=== PATIENT | female | born 1980 | race Caucasian/White ===

== ENCOUNTER 2024-09-12 10:17 | Outpatient (AMB) | payer OTHER, SELFPAY ==
--- NOTE | 2024-09-12 10:22 | MHC.OFFVIS ---
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 Every month she may take meloxicam for a couple of days until morning stiffness subsides then resumes every other day dose. Denies new uveitis, bowel symptoms, joint swelling, joint pain, dactylitis. She is currently being treated for a stye with doxycycline. PFSH Family History (Updated 09/11/24 @ 16:34 by Rhonda Durant CMA) Mother Rheumatoid arthritis Social History (Updated 09/11/24 @ 16:33 by Rhonda Durant CMA) Alcohol intake: current Alcohol intake frequency: holidays/special occasions only Review of Systems Const All systems reviewed & are unremarkable except as noted in HPI and below Physical Exam Vital Signs: Last Vital Signs BP 110/80 09/12/24 10:24 BMI result Body Mass Index 24.4 Const Other: General: Comfortable CVS: RRR Respiratory: clear to auscultation bilaterally. Good respiratory effort Skin: No lesions seen MSK: No tenderness of any joints. Good range of motion upper extremity and lower extremities. Negative BENITO. No spinous process tenderness. Good range of motion of cervical spine and lumbar flexion. Assessment & Plan Assessment & Plan (1) Ankylosing spondylitis: Comment: Diagnosed in . Presenting with inflammatory back pain with bilateral sacroiliitis. HLA B27 positive with normal inflammatory markers. She has been controlled on meloxicam since 06/09/2021. Ankylosing spondylitis is controlled on meloxicam every other day and daily when she has mild flare of back stiffness. 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
[2024-09-12 10:24] VITALS: BP 110/80; BMI 24.4
== END 2024-09-12 10:43 | disposition home or self-care (01) ==
PROVIDERS: PCP Internal Medicine Rheumatology; Visit Provider Internal Medicine Rheumatology
DX: M45.8 Ankylosing spondylitis sacral and sacrococcygeal region (principal); Z79.1 Long term (current) use of non-steroidal anti-inflammatories (NSAID)
CPT/HCPCS: 99214

== ENCOUNTER 2025-02-13 14:27 | Outpatient (AMB) | payer OTHER, SELFPAY ==
--- NOTE | 2025-02-13 14:29 | MHC.OFFVIS ---
Vital Signs 02/13/25 14:31 Height 6 ft Weight 152 lb 8.958 oz BMI 20.7 BP 130/80 Blood Pressure Location Lt brachial Position Sitting Pulse 72 Pulse Source Pulse Oximeter Pulse Oximetry (%) 100 Oxygen Delivery Method Room Air Intake Visit Reasons: follow up Intake Note: Pt presents today for Arthritis. Allergies sulfamethoxazole [From Bactrim] Allergy (Mild, Verified 02/13/25 14:31) Rash trimethoprim [From Bactrim] Allergy (Mild, Verified 02/13/25 14:31) Rash HPI HPI follow up: Details: Pain in back started to increase early January. She had increased pain a week before a half marathon run. After running half marathon she was unable to get out of bed 2 days after. 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 She needed assistance to get up out of bed. Morning stiffness was all day. ER doctor prescribed prednisone 40mg qd x4 days 2 weeks ago. She was able to stand up straight but had difficulty walking with prednisone. Finished prednisone last two Sundays ago. She then took meloxicam daily for a few days. She is now back to meloxicam every other day for 4 days. Today she was able to get out of bed without a lot of effort. No dactylics or synovitis or uveitis or IBD symptoms. PFSH Family History Mother Rheumatoid arthritis Social History Alcohol intake: current Alcohol intake frequency: holidays/special occasions only Physical Exam Vital Signs: Last Vital Signs Pulse 72 02/13/25 14:31 BP 130/80 02/13/25 14:31 Pulse Ox 100 02/13/25 14:31 Oxygen Delivery Method Room Air 02/13/25 14:31 BMI result Body Mass Index 20.7 Const Other: General: Comfortable CVS: RRR Respiratory: clear to auscultation bilaterally. Good respiratory effort Skin: No lesions seen MSK: No tenderness of any peripheral joints. No synovitis. Normal range of motion upper extremity and lower extremities. Tender to palpate bilateral SI joints. She localizes pain to lower lumbar region radiating laterally to both sides. Positive BENITO. No spinous process or paraspinal muscle tenderness. Normal range of motion of cervical spine and lumbar flexion. Assessment & Plan Assessment & Plan (1) Ankylosing spondylitis: Comment: Uncontrolled inflammatory back pain. She had benefit with 5 day course of prednisone 40 mg daily then meloxicam 15 mg daily. We discussed treatment of inflammatory back pain. X-rays from September 2023 reveal lower lumbar degenerative disc disease localized to L4-L5 L5-S1. SI joint x-rays from September 2023 were normal. Rheumatology history: Diagnosed in 2021. Presenting with inflammatory back pain with bilateral sacroiliitis. HLA B27 positive with normal inflammatory markers. She has been controlled on meloxicam since 06/09/2021. Ankylosing spondylitis is controlled on meloxicam every other day and daily when she has mild flare of back stiffness. Code(s): M45.9 - Ankylosing spondylitis of unspecified sites in spine Category: Medical Qualifiers: Ankylosing spondylitis location: sacral region Qualified Code(s): M45.8 - Ankylosing spondylitis sacral and sacrococcygeal region Plan: Increased frequency of meloxicam to 15 mg daily. If she does not have resolution of symptoms in 2 weeks, she will call office. 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 immunomodulators and immunosuppressants C Reactive Protein Today Z79.899 - Other vermin exterminator (current) drug therapy XR lumbar spine 2-3V Today M45.8 - Ankylosing spondylitis sacral and sacrococcygeal region Alanine Aminotransferase Today Z79.60 - intermodal dispatcher (current) use of unspecified immunomodulators and immunosuppressants Creatinine Today Z79.60 - intermodal dispatcher (current) use of unspecified immunomodulators and immunosuppressants Erythrocyte Sedimentation Rate Today Z79.899 - Other detention (current) drug therapy XR sacroiliac joint min 3V Today M45.8 - Ankylosing spondylitis sacral and sacrococcygeal region Coding Level of Care Code Est Pt Level 4 (52016) Complex EM visit Add On G2211 Diagnoses Ankylosing spondylitis of sacral region M45.8 Ankylosing spondylitis location: sacral region
[2025-02-13 14:31] VITALS: BP 130/80; PULSE 72; O2SAT 100; BMI 20.7
== END 2025-02-13 15:08 | disposition home or self-care (01) ==
LOC: HO.RHES 14:28
PROVIDERS: PCP Internal Medicine Rheumatology; Visit Provider Internal Medicine Rheumatology
DX: M45.8 Ankylosing spondylitis sacral and sacrococcygeal region (principal)
CPT/HCPCS: 99214

== ENCOUNTER 2025-02-13 14:27 | Outpatient (REF) | payer OTHER, SELFPAY ==
[2025-02-13 17:54] LABS: MANUAL DIFF FLAG NO
[2025-02-13 18:07] LABS: Basophils Percent Auto 0.5 % (0-2); Eosinophils Absolute Auto 0.1 X10*3/uL (0.0-0.4); Eosinophils Percent Auto 1.1 % (0-4); Hematocrit 40.8 % (37.0-47.0); Hemoglobin 13.8 g/dl (12.0-16.0); Imm Gran Abs Auto 0.02 X10*3/uL (0.00-0.03); Imm Gran Pct Auto 0.2 % (0.0-0.4); Lymphocytes Percent Auto 24.2 % (20-40); Mean Corpuscular HGB Conc 33.8 g/dl (31.0-35.0); Mean Corpuscular Hemoglobin 30.5 pg (27.0-33.0); Mean Corpuscular Volume 90.1 fL (80.0-98.0); Mean Platelet Volume 11.2 fL (9.4-12.3); Monocytes Absolute Auto 0.6 X10*3/uL (0.1-1.2); Monocytes Percent Auto 7.1 % (2-11); Neutrophils Absolute Auto 5.6 x10*3/uL (2.0-8.3); Neutrophils Percent Auto 66.9 % (45-73); Platelet Count 210 X10*3/uL (160-400); Red Blood Count 4.53 X10*6/uL (4.20-5.50); Red Cell Distribution Width 12.8 % (11.0-16.0); White Blood Count 8.4 X10*3/uL (4.8-10.8)
[2025-02-13 18:18] LABS: Alanine Aminotransferase 15 U/L (0-31); Aspartate Amino Transferase 24 U/L (5-31); C Reactive Protein < 0.04 mg/dL (< or = 0.50); Estimated Glomerular Filt Rate > 60
[2025-02-13 19:03] LABS: Erythrocyte Sedimentation Rate 2 MM/HR (0-20)
== END 2025-02-13 14:28 | disposition home or self-care (01) ==
LOC: HO.HKASLDS 14:27
PROVIDERS: PCP Internal Medicine Rheumatology; Visit Provider Internal Medicine Rheumatology
DX: M45.8 Ankylosing spondylitis sacral and sacrococcygeal region (principal); Z79.60 Long term (current) use of unspecified immunomodulators and immunosuppressants; Z79.899 Other long term (current) drug therapy
CPT/HCPCS: 36415; 82565; 84450; 84460; 85025; 85652; 86140

== ENCOUNTER 2025-05-01 09:25 | Outpatient (AMB) | payer OTHER, SELFPAY ==
--- NOTE | 2025-05-01 09:34 | A.OFFVIS_ITS ---
Vital Signs 05/01/25 09:39 Height 6 ft Weight 132 lb 11.492 oz BMI 18.0 BP 96/70 Blood Pressure Location Rt brachial Position Sitting Pulse 62 Pulse Source Pulse Oximeter Pulse Oximetry (%) 100 Oxygen Delivery Method Room Air Intake Visit Reasons: 3 Months Intake Note: Pt presents today for Arthritis. Accompanied by: Self / Same As Patient Allergies sulfamethoxazole (From Bactrim) Allergy (Mild, Verified 02/13/25 14:31) Rash trimethoprim (From Bactrim) Allergy (Mild, Verified 02/13/25 14:31) Rash PFSH Family History Mother Rheumatoid arthritis Social History Alcohol intake: current Alcohol intake frequency: holidays/special occasions only Physical Exam Vital Signs: Last Vital Signs Pulse 62 05/01/25 09:39 BP 96/70 05/01/25 09:39 Pulse Ox 100 05/01/25 09:39 Oxygen Delivery Method Room Air 05/01/25 09:39 BMI result Body Mass Index 18.0 Const Other: General: Comfortable CVS: RRR Respiratory: clear to auscultation bilaterally. Good respiratory effort Skin: No lesions seen MSK: No tenderness of any peripheral joints. No synovitis. Normal range of motion upper extremity and lower extremities. Tender to palpate bilateral SI joints. Negative BENITO. No spinous process or paraspinal muscle tenderness. Tender to palpate along right plantar fascia. Soft tissue swelling medial right heel. No tenderness of plantar aponeurosis. No Achilles tendon tenderness. No dactylitis. Assessment & Plan Assessment & Plan (1) Ankylosing spondylitis: Comment: Inflammatory back pain is controlled on meloxicam 15 mg daily. She developed right plantar fasciitis in March. She has had improvement with home exercise program. Rheumatology history: Diagnosed in 2021. Presenting with inflammatory back pain with bilateral sacroiliitis. HLA B27 positive with normal inflammatory markers. She has been controlled on meloxicam since 06/09/2021. Ankylosing spondylitis is controlled on meloxicam every other day and daily when she has mild flare of back stiffness. 11/2024 X-rays from September 2023 reveal lower lumbar degenerative disc disease localized to L4-L5 L5-S1. SI joint x-rays from September 2023 were normal. 01/2025 flare of back pain treated with prednisone 40mg qd 5 days then meloxicam 15mg daily. Meloxicam switched to celecoxib 04/2025 R plantar fasciitis. Code(s): M45.9 - Ankylosing spondylitis of unspecified sites in spine Category: Medical Qualifiers: Ankylosing spondylitis location: sacral region Qualified Code(s): M45.8 - Ankylosing spondylitis sacral and sacrococcygeal region Plan: Labs for drug monitoring chronic NSAID ordered Lumbar spine and SI joint x-rays ordered to assess disease activity last visit. Patient will have x-rays done next Wednesday on her day off PT ordered for plantar fasciitis with focus manual and modalities as patient is doing home exercise program. 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-steroidal anti-inflammatories (NSAID) Creatinine Today Z79.1 - halfway (current) use of non-steroidal anti- inflammatories (NSAID) PT Evaluation and Treatment Today M72.2 - Plantar fascial fibromatosis Aspartate Amino Transferase Today Z79.1 - 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
[2025-05-01 09:39] VITALS: BP 96/70; PULSE 62; O2SAT 100; BMI 18.0
== END 2025-05-01 09:58 | disposition home or self-care (01) ==
LOC: HO.RHES 09:26
PROVIDERS: PCP Internal Medicine Rheumatology; Visit Provider Internal Medicine Rheumatology
DX: M45.8 Ankylosing spondylitis sacral and sacrococcygeal region (principal); M72.2 Plantar fascial fibromatosis
CPT/HCPCS: 99214; G2211

== ENCOUNTER 2025-05-01 09:25 | Outpatient (REF) | payer OTHER, SELFPAY ==
[2025-05-01 13:47] LABS: Alanine Aminotransferase 18 U/L (0-31); Aspartate Amino Transferase 23 U/L (5-31); Estimated Glomerular Filt Rate > 60
== END 2025-05-01 09:26 | disposition home or self-care (01) ==
LOC: HO.HKASLDS 09:25
PROVIDERS: PCP Internal Medicine Rheumatology; Visit Provider Internal Medicine Rheumatology
DX: M45.8 Ankylosing spondylitis sacral and sacrococcygeal region (principal); M72.2 Plantar fascial fibromatosis; Z79.1 Long term (current) use of non-steroidal anti-inflammatories (NSAID)
CPT/HCPCS: 36415; 82565; 84450; 84460

== ENCOUNTER 2025-08-01 10:28 | Outpatient (AMB) | payer OTHER, SELFPAY ==
--- NOTE | 2025-08-01 10:30 | A.OFFVIS_ITS ---
Vital Signs 08/01/25 10:31 Height 6 ft Weight 179 lb 7.3 oz BMI 24.3 BP 122/70 Blood Pressure Location Rt brachial Position Sitting Pulse 71 Pulse Source Pulse Oximeter Pulse Oximetry (%) 98 Oxygen Delivery Method Room Air Intake Visit Reasons: 3 months Intake Note: Pt presents today for Arthritis. Accompanied by: Self / Same As Patient Allergies sulfamethoxazole (From Bactrim) Allergy (Mild, Verified 08/01/25 10:31) Rash trimethoprim (From Bactrim) Allergy (Mild, Verified 08/01/25 10:31) Rash HPI HPI 3 months: Details: No change in her back pain and stiffness on Celebrex. Her back feels well. Plantar fasciitis has improved with PT and Celebrex. Her pain is now 2/10. She changes and work shoes every 6 months. She changes her running shoes that she wears for running every 3 months. 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 No recent iritis or skin rash or changes in her bowels PFSH Family History Mother Rheumatoid arthritis Social History Alcohol intake: current Alcohol intake frequency: holidays/special occasions only Physical Exam Vital Signs: Last Vital Signs Pulse 71 08/01/25 10:31 BP 122/70 08/01/25 10:31 Pulse Ox 98 08/01/25 10:31 Oxygen Delivery Method Room Air 08/01/25 10:31 BMI result Body Mass Index 24.3 Const Other: General: Comfortable CVS: RRR Respiratory: clear to auscultation bilaterally. Good respiratory effort Skin: No lesions seen MSK: No tenderness of any peripheral joints. No synovitis. Normal range of motion upper extremity and lower extremities. Tender to palpate bilateral SI joints and lower lumbar spine. Negative BENITO. No spinous process or paraspinal muscle tenderness. Tender to palpate along right plantar fascia. No tenderness of plantar aponeurosis. No Achilles tendon tenderness. No dactylitis. Assessment & Plan Assessment & Plan (1) Ankylosing spondylitis: Comment: Inflammatory back pain is controlled on celecoxib. She developed right plantar fasciitis in March, which improved with changing NSAID and PT. Rheumatology history: Diagnosed in 2021. Presenting with inflammatory back pain with bilateral sacroiliitis. HLA B27 positive with normal inflammatory markers. She has been controlled on meloxicam since 06/09/2021. Ankylosing spondylitis is controlled on meloxicam every other day and daily when she has mild flare of back stiffness. 11/2024 X-rays from September 2023 reveal lower lumbar degenerative disc disease localized to L4-L5 L5-S1. SI joint x-rays from September 2023 were normal. 01/2025 flare of back pain treated with prednisone 40mg qd 5 days then meloxicam 15mg daily. Meloxicam switched to celecoxib 04/2025 R plantar fasciitis. Code(s): M45.9 - Ankylosing spondylitis of unspecified sites in spine Category: Medical Qualifiers: Ankylosing spondylitis location: sacral region Qualified Code(s): M45.8 - Ankylosing spondylitis sacral and sacrococcygeal region Plan: Labs for disease and drug monitoring chronic NSAID ordered Lumbar spine and SI joint x-rays ordered to assess disease activity in a previous visit. Lab requisition given to patient to have done at [facility]. Continue home exercise Continue celecoxib 200 mg b.i.d. I have asked her to change her work shoes every 3 months. If pain from plantar fasciitis is not improve, she will see a life sciences teacher for further evaluation and management with consideration of custom insoles. Continue to wear supportive footwear Return to clinic in 6 months (2) Plantar fasciitis of right foot: Code(s): M72.2 - Plantar fascial fibromatosis Category: Medical Plan: See above Orders: Orders Erythrocyte Sedimentation Rate Today Z79.899 - Other terminal carman (current) drug therapy C Reactive Protein Today Z79.899 - Other retirement (current) drug therapy Medications: Changed From celecoxib Replace meloxicam 200 mg PO BID 60 caps 2RF To celecoxib 200 mg PO BID 180 caps 1RF 90 days Coding Level of Care Code Est Pt Level 4 (69655) Complex EM visit Add On G2211 Diagnoses Ankylosing spondylitis of sacral region M45.8 Ankylosing spondylitis location: sacral region Plantar fasciitis of right foot M72.2
[2025-08-01 10:31] VITALS: BP 122/70; PULSE 71; O2SAT 98; BMI 24.3
== END 2025-08-01 11:06 | disposition home or self-care (01) ==
LOC: HO.RHES 10:28
PROVIDERS: PCP Internal Medicine Rheumatology; Visit Provider Internal Medicine Rheumatology
DX: M45.8 Ankylosing spondylitis sacral and sacrococcygeal region (principal); M72.2 Plantar fascial fibromatosis
CPT/HCPCS: 99214; G2211

== ENCOUNTER 2025-09-19 14:35 | Outpatient (REF) | payer OTHER, SELFPAY | END 2025-09-19 14:36 | disposition home or self-care (01) | LOC: HO.HKASLDS 14:35 | PROVIDERS: PCP Internal Medicine; Visit Provider Internal Medicine Rheumatology | DX: Z79.899 Other long term (current) drug therapy (principal) | CPT/HCPCS: 36415; 85652; 86140 ==